=== PATIENT | male | born 1980 | race Caucasian/White ===

== ENCOUNTER 2017-10-12 13:35 | Emergency (ER) | payer SELFPAY ==
[~2017-10-12] VITALS: Ht 175.3 cm; Wt 123.6 kg
[~2017-10-12 13:35] MED LIST: DEXT30CA6 PO; GABA800T PO; HYDR-2766 PO; METF500T5 PO
[2017-10-12] MEDS ORDERED: PENI500T PO (14:46)
[2017-10-12] MEDS ORDERED: TRAM-48 PO (14:46)
--- NOTE | 2017-10-12 14:46 | PHYS DOC ---
Past History Past Medical History: No Pertinent History Past Surgical History: Tonsillectomy, Other Smoking: Cigarettes Alcohol Use: Occasionally Drug Use: None Adult General Chief Complaint Chief Complaint: DENTAL PROBLEM HPI HPI 37-year-old male patient with history of smoking complaining of pain in left upper jaw and tooth since last night as a constant pain that getting worse with eating and talking and rated his pain 6/10. Patient denies fever and chills, nausea and vomiting, recent injury. Patient currently smoking. Review of Systems Review of Systems Constitutional: Denies fever or chills [] Eyes: Denies change in visual acuity, redness, or eye pain [] HENT: Denies nasal congestion or sore throat [] Respiratory: Denies cough or shortness of breath [] Cardiovascular: No additional information not addressed in HPI [] GI: Denies abdominal pain, nausea, vomiting, bloody stools or diarrhea [] : Denies dysuria or hematuria [] Musculoskeletal: Denies back pain or joint pain [] Integument: Denies rash or skin lesions [] Neurologic: Denies headache, focal weakness or sensory changes [] Endocrine: Denies polyuria or polydipsia [] All other systems were reviewed and found to be within normal limits, except as documented in this note. Current Medications Current Medications Current Medications Medications (Trade) Dose Ordered Sig/Ting Start Time Stop Time Status Last Admin Dose Admin Ketorolac Tromethamine (Toradol Im) 60 mg 1X ONCE 10/12/17 15:00 10/12/17 15:01 Allergies Allergies Allergies Coded Allergies Type Severity Reaction Last Updated Verified No Known Drug Allergies 07/07/15 No Physical Exam Physical Exam Constitutional: Well developed, well nourished, mild istress, non-toxic appearance. [] HENT: Normocephalic, atraumatic, bilateral external ears normal, multiple dental cavities, #14 with tenderness and large cavity and gum edema or erythema without drainage of pus, oropharynx moist, no oral exudates, nose normal. [] Eyes: PERRLA, EOMI, conjunctiva normal, no discharge. [] Neck: Normal range of motion, no tenderness, supple, no stridor. [] Cardiovascular:Heart rate regular rhythm, no murmur [] Lungs & Thorax: Bilateral breath sounds clear to auscultation [] Extremities: No tenderness, no cyanosis, no clubbing, ROM intact, no edema. [] Neurologic: Alert and oriented X 3, normal motor function, normal sensory function, no focal deficits noted. [] Psychologic: Affect normal, judgement normal, mood normal. [] Current Patient Data Vital Signs Vital Signs Date Time Temp Pulse Resp B/P (MAP) Pulse Ox O2 Delivery O2 Flow Rate FiO2 10/12/17 13:57 98.0 67 18 98 Room Air EKG EKG [] Radiology/Procedures Radiology/Procedures [] Course & Med Decision Making Course & Med Decision Making discharge: I've spoken with the patient and/or caregivers. I've explained the patient's condition, diagnosis and treatment plan based on information available to me at this time. I've answered the patient's and/or caregivers questions and addressed any concerns. The patient and/or caregivers have a good understanding the patient's diagnosis, condition and treatment plan as can be expected at this point. Vital signs have been stabilized. The patient's condition is stable for discharge from the emergency department. The patient will pursue further outpatient evaluation with her primary care provider or other designated consulting physician as outlined in the discharge instructions. Patient and/or caregivers are agreeable to this plan of care and follow-up instructions have been explained in detail. The patient and/or caregivers have received these instructions in written format and expressed understanding of these discharge instructions. The patient and her caregivers are aware that if any significant change in condition or worsening of symptoms should prompt him to immediately return to this of the closest emergency department. If an emergent department is not readily available I would encourage him to call 911. Dragon Disclaimer Dragon Disclaimer This electronic medical record was generated, in whole or in part, using a voice recognition dictation system. Departure Departure: Impression: Primary Impression: Dentalgia Additional Impressions: Dental abscess Dental cavities Tobacco abuse Tobacco abuse counseling Disposition: HOME, SELF-CARE (at 1443) Condition: STABLE Referrals: PCP,SEAMUS (PCP) Patient Instructions: Dental Abscess, Dental Caries, Smoking Cessation, Tips For Success Additional Instructions: Follow-up with her dentist in 5-7 days Quit smoking Return to ER if not getting better Scripts Tramadol Hcl (ULTRAM) 50 Mg Tablet 50 MG PO PRN Q6HRS PRN for PAIN, #20 TAB Prov: CHIQUI CHANG MD 10/12/17 Penicillin V Potassium (PENICILLIN V POTASSIUM) 500 Mg Tablet 1 TAB PO TID, #30 TAB Prov: CHIQUI CHANG MD 10/12/17 Problem Qualifiers CHIQUI CHANG MD Oct 12, 2017 14:46
[2017-10-12] MEDS ORDERED: KETOROLAC 60 MG/2 ML VIAL. IM ONE (15:00)
[2017-10-12 15:12] VITALS: BP 151/85
== END 2017-10-12 15:12 | disposition home or self-care (01) ==
LOC: ER 13:35
DX: K04.7 Periapical abscess without sinus (principal); K02.9 Dental caries, unspecified; F17.210 Nicotine dependence, cigarettes, uncomplicated; Z71.6 Tobacco abuse counseling
CPT/HCPCS: 96372; 99283; J1885

== ENCOUNTER 2018-01-04 10:26 | Emergency (ER) | payer SELFPAY ==
[~2018-01-04] VITALS: Ht 175.3 cm; Wt 125.8 kg
[~2018-01-04 10:26] MED LIST changes: +METF500T16 PO; -METF500T5 PO; +PENI500T PO; +TRAM-48 PO
[2018-01-04 10:33] VITALS: BP 152/67
[2018-01-04] MEDS ORDERED: CYCL-331 PO (11:09)
[2018-01-04] MEDS ORDERED: HYDR-971 PO (11:10)
[2018-01-04] MEDS ORDERED: METH4TAB2 PO (11:10)
[2018-01-04] MEDS ORDERED: KETOROLAC 60 MG/2 ML VIAL. IM ONE (11:10)
--- NOTE | 2018-01-04 11:10 | PHYS DOC ---
Past History Past Medical History: Diabetes Past Surgical History: Tonsillectomy, Other Smoking: Cigarettes Alcohol Use: Occasionally Drug Use: None Adult General Chief Complaint Chief Complaint: BACK PAIN OR INJURY HPI HPI Patient is a 37 year old male who presents with complaining of low back pain for the last 2 days. Patient states he started to have gradual lower back pain without radiation as a constant pain that getting force with movement and bending after he moves heavy washer and dryer. Patient rated his pain 10 over 10 and states she took [id number] ibuprofen and Naprosyn without improvement of his pain. Patient denies focal neuro deficit, fever and chills, urine and bowel incontinence, history of back pain. Review of Systems Review of Systems Constitutional: Denies fever or chills [] Eyes: Denies change in visual acuity, redness, or eye pain [] HENT: Denies nasal congestion or sore throat [] Respiratory: Denies cough or shortness of breath [] Cardiovascular: No additional information not addressed in HPI [] GI: Denies abdominal pain, nausea, vomiting, bloody stools or diarrhea [] : Denies dysuria or hematuria [] Musculoskeletal: Reports back pain Integument: Denies rash or skin lesions [] Neurologic: Denies headache, focal weakness or sensory changes [] Endocrine: Denies polyuria or polydipsia [] All other systems were reviewed and found to be within normal limits, except as documented in this note. Current Medications Current Medications Current Medications Medications (Trade) Dose Ordered Sig/Ting Start Time Stop Time Status Last Admin Dose Admin Ketorolac Tromethamine (Toradol Im) 60 mg 1X ONCE 01/04/18 11:10 01/04/18 11:11 Allergies Allergies Allergies Coded Allergies Type Severity Reaction Last Updated Verified No Known Drug Allergies 07/07/15 No Physical Exam Physical Exam Constitutional: Well developed, well nourished, moderate distress, non-toxic appearance. [] HENT: Normocephalic, atraumatic Eyes: PERRLA, EOMI, conjunctiva normal, no discharge. [] Neck: Normal range of motion, no tenderness, supple, no stridor. [] Cardiovascular:Heart rate regular rhythm, no murmur [] Lungs & Thorax: Bilateral breath sounds clear to auscultation [] Abdomen: Bowel sounds normal, soft, no tenderness, no masses, no pulsatile masses. [] Skin: Warm, dry, no erythema, no rash. [] Back: No midline tenderness, bilateral paraspinal muscle spasm, no CVA tenderness. [] Extremities: No tenderness, no cyanosis, no clubbing, ROM intact, no edema. [] Neurologic: Alert and oriented X 3, normal motor function, normal sensory function, no focal deficits noted. [] Psychologic: Affect normal, judgement normal, mood normal. [] Current Patient Data Vital Signs Vital Signs Date Time Temp Pulse Resp B/P (MAP) Pulse Ox O2 Delivery O2 Flow Rate FiO2 01/04/18 10:33 98.0 60 18 100 Room Air EKG EKG [] Radiology/Procedures Radiology/Procedures [] Course & Med Decision Making Course & Med Decision Making Evaluation of patient in ER showed 37-year-old male patient with complaining of low back pain after lifting heavy weight for the last 3 days. Patient applied ice on his back without improvement. Patient had pulses present and treated with Toradol partial improvement of his pain. Plan discharge patient home to diagnose of lumbosacral myofascial strain. Patient instructed to apply ice on his back and avoid of bending over. Dragon Disclaimer Dragon Disclaimer This electronic medical record was generated, in whole or in part, using a voice recognition dictation system. Departure Departure: Impression: Primary Impression: Acute lumbosacral myofascial strain Additional Impression: Morbid obesity Disposition: 01 HOME, SELF-CARE (@1108) Condition: IMPROVED Referrals: PCP,NO (PCP) Patient Instructions: Lumbosacral Strain Additional Instructions: Apply ice on the affected Follow-up with your primary care physician in 3-5 days Return to ER if not getting better Scripts Hydrocodone Bit/Acetaminophen (NORCO 5-325 TABLET) 1 Each Tablet 1 TAB PO PRN Q6HRS PRN for PAIN, #14 TAB 0 Refills Prov: CHIQUI CHANG MD 01/04/18 Methylprednisolone (MEDROL) 4 Mg Tab.ds.pk 1 PKG PO UD for inflammation, #1 PKG Prov: CHIQUI CHANG MD 01/04/18 Cyclobenzaprine Hcl (CYCLOBENZAPRINE HCL) 10 Mg Tablet 1 TAB PO TID for pain, #30 TAB Prov: CHIQUI CHANG MD 01/04/18 Problem Qualifiers CHIQUI CHANG MD Jan 04, 2018 11:10
== END 2018-01-04 11:18 | disposition home or self-care (01) ==
LOC: ER 10:26
DX: S39.012A Strain of muscle, fascia and tendon of lower back, initial encounter (principal); E66.01 Morbid (severe) obesity due to excess calories; E11.9 Type 2 diabetes mellitus without complications; F17.210 Nicotine dependence, cigarettes, uncomplicated; Z68.41 Body mass index [BMI] 40.0-44.9, adult; X50.0XXA Overexertion from strenuous movement or load, initial encounter; Y93.89 Activity, other specified; Y92.89 Other specified places as the place of occurrence of the external cause; Y99.8 Other external cause status
CPT/HCPCS: 96372; 99283; J1885

== ENCOUNTER 2018-05-14 15:17 | Emergency (ER) | payer SELFPAY ==
[~2018-05-14] VITALS: Ht 185.4 cm; Wt 135.4 kg
[~2018-05-14 15:17] MED LIST changes: +CYCL-331 PO; -HYDR-2766 PO; +HYDR-2769 PO; +HYDR-3165 PO; +METH4TAB2 PO
[2018-05-14 15:26] VITALS: BP 161/117
[2018-05-14] MEDS ORDERED: AMOX1TAB61 PO (15:29)
--- NOTE | 2018-05-14 15:29 | PHYS DOC ---
Past History Past Medical History: Diabetes Past Surgical History: Tonsillectomy, Other Smoking: Cigarettes Alcohol Use: Occasionally Drug Use: None Adult General Chief Complaint Chief Complaint: ANIMAL BITE HPI HPI 38-year-old male presenting the emergency department today with a cat bite to his right first finger. Cat is up-to-date on immunizations. The patient has up- to-date tetanus within the last 5 years. He reports the cat was behaving normally. He owns a cat and can monitor the cat after this. He has pain in her finger that is sharp shooting mild nonradiating. The incident occurred at approximately 7 or 8 this morning. Review of systems is negative for any other injuries. ED course: 38-year-old male presenting with a cat bite. Low risk for rabies, he will monitor the animal for 10 days and return for shots if the animal develops any signs or symptoms. We will initiate oral Augmentin prophylactically for prevention of infection.The patient has been examined and was not found to have an emergency medical condition. The patient was then discharged home in stable condition to follow up with their primary care physician over the next 1-2 days. They were to return if their symptoms worsened or if they were concerned for any reason. They were also instructed to return to the emergency department if they were unable to get the recommended and appropriate follow- up. [id number] discharge instructions and return precautions were given. Patient's questions were answered to their satisfaction. Patient is comfortable with plan. Allergies Allergies Allergies Coded Allergies Type Severity Reaction Last Updated Verified No Known Drug Allergies 07/07/15 No Physical Exam Physical Exam Constitutional: Well developed, well nourished, no acute distress, non-toxic appearance. [] HENT: Normocephalic, atraumatic, bilateral external ears normal, oropharynx moist, no oral exudates, nose normal. Eyes: PERRLA, EOMI, conjunctiva normal, no discharge. [] Neck: Normal range of motion, no tenderness, supple, no stridor. Cardiovascular:Heart rate regular rhythm, no murmur [] Lungs & Thorax: Bilateral breath sounds clear to auscultation Abdomen: Bowel sounds normal, soft, no tenderness, no masses, no pulsatile masses. [] Skin: Warm, dry, no erythema, no rash. Back: No tenderness, no CVA tenderness. Extremities: The patient's right first finger has 3 small abrasions/bite garcia. The remainder of the extremities are nontender atraumatic and neurovascularly intact. Neurologic: Alert and oriented X 3, normal motor function, normal sensory function, no focal deficits noted. Psychologic: Affect normal, judgement normal, mood normal. EKG EKG [] Radiology/Procedures Radiology/Procedures [] Course & Med Decision Making Course & Med Decision Making Pertinent Labs and Imaging studies reviewed. (See chart for details) [] Dragon Disclaimer Dragon Disclaimer This electronic medical record was generated, in whole or in part, using a voice recognition dictation system. Departure Departure: Impression: Primary Impression: Cat bite Disposition: HOME, SELF-CARE Condition: STABLE Referrals: PCP,NO (PCP) Patient Instructions: Animal Bite Additional Instructions: Thank you for allowing us to participate in your care today. Return to the emergency department you have any new or worsening symptoms, or if you are concerned for any reason. Return to emergency department if you have any new or concerning symptoms including but not limited to fever, chills, nausea, vomiting, intractable pain, any new rashes, chest pain, shortness of air , uncontrolled bleeding, difficulty breathing, and/or vision loss. Follow up with your primary care physician within 1-2 days. Call your Primary Doctor tomorrow and inform them of your visit today. If you do not have a primary care provider we are happy to provide you with a list of our primary care providers contact information. This condition should be evaluated by your primary care physician and any recommended consulting services for continued management within 2 days after discharge. If at any time, you are having difficulty getting into your primary care doctor or a specialist, return to the emergency department. Scripts Amoxicillin/Potassium Clav (AUGMENTIN 875-125 TABLET) 1 Each Tablet 1 TAB PO BID for cat bite, #20 TAB Prov: CHANTAL CARRILLO MD 05/14/18 CHANTAL CARRILLO MD May 14, 2018 15:29
== END 2018-05-14 15:33 | disposition home or self-care (01) ==
LOC: ER 15:17
DX: S61.250A Open bite of right index finger without damage to nail, initial encounter (principal); E11.9 Type 2 diabetes mellitus without complications; F17.210 Nicotine dependence, cigarettes, uncomplicated; W55.01XA Bitten by cat, initial encounter; Y93.89 Activity, other specified; Y92.89 Other specified places as the place of occurrence of the external cause; Y99.8 Other external cause status
CPT/HCPCS: 99283

== ENCOUNTER 2018-08-04 06:41 | Emergency (ER) | payer SELFPAY ==
[~2018-08-04] VITALS: Ht 175.3 cm; Wt 133.4 kg
[~2018-08-04 06:41] MED LIST changes: +AMOX1TAB61 PO
--- NOTE | 2018-08-04 06:56 | PHYS DOC ---
Past History Past Medical History: Diabetes, Other Additional Past Medical Histor: Chronic back pain Past Surgical History: Tonsillectomy, Other Smoking: Cigarettes Alcohol Use: Occasionally Drug Use: None Adult General Chief Complaint Chief Complaint: BACK PAIN - NO INJURY HPI HPI 38 y/o male with pmh of chronic low back pain presents with reports of mechanical slip and fall down some stairs yesterday. Reports slipped carrying a box at his residence. Denies head trauma or LOC. Denies neck pain. Reports new upper back pain and exacerbation of chronic low back pain. Denies loss of bowel/bladder. Reports awoke this AM in pain. Reports headache this AM as well. Reports taking Ibuprofen and Tylenol prior to arrival at 0400 this AM. Patient drove self in vehicle to ED. Review of Systems Review of Systems Constitutional: Denies fever or chills Eyes: Denies redness or eye pain HENT: Denies nasal congestion or sore throat Respiratory: Denies cough or shortness of breath Cardiovascular: Denies chest pain or palpitations GI: Denies abdominal pain, nausea, or vomiting : Denies dysuria or hematuria Musculoskeletal: Reports thoracic and lumbar back pain; denies neck pain Integument: Denies rash or skin lesions Neurologic: Reports headache; denies loss of bowel/bladder, focal weakness, or sensory changes Complete systems were reviewed and found to be within normal limits, except as documented in this note. Allergies Allergies Allergies Coded Allergies Type Severity Reaction Last Updated Verified No Known Drug Allergies 07/07/15 No Physical Exam Physical Exam Constitutional: Well developed, well nourished, no acute distress, non-toxic appearance HENT: Normocephalic, atraumatic, oropharynx moist Eyes: Conjunctiva normal, no discharge Neck: Normal range of motion, no tenderness, supple Cardiovascular: Heart rate normal, regular rhythm Lungs & Thorax: Bilateral breath sounds clear to auscultation, no wheezing Abdomen: Soft, no tenderness; pelvis stable and nontender Skin: Warm, dry, no erythema, no rash, no ecchymosis, no laceration Back: Midline mid thoracic pain, right paraspinal pain to thoracic region and bilateral lumbar region Extremities: No tenderness, ROM intact, no edema Neurologic: Alert and oriented X 3, normal motor function, normal sensory function, no focal deficits noted Psychologic: Affect normal, judgement normal EKG EKG [] Radiology/Procedures Radiology/Procedures PROCEDURE: THORACIC SPINE 3V Three-view thoracic spine radiographs 08/04/2018 CLINICAL HISTORY: Mid back pain. Fall yesterday. 2 AP, a lateral and swimmer's lateral digital radiographs of the thoracic spine were obtained. Minimal S-shaped curvature of the thoracolumbar spine is seen. No fracture or subluxation of the thoracic vertebrae is seen. Degenerative changes are seen throughout the thoracic disc spaces consisting of vertebral endplate sclerosis and minimal to mild anterior vertebral body osteophyte formation. No paravertebral soft tissue swelling is seen. IMPRESSION: No fracture or subluxation of the thoracic vertebrae is seen. Electronically signed by: Misael Morris MD (08/04/2018 8:19 AM) [id number] PROCEDURE: LUMBAR SPINE 2-3V Three-view lumbar spine radiographs 08/04/2018 CLINICAL HISTORY: Low back pain post fall yesterday. AP and 2 lateral digital radiographs of the lumbar spine were obtained. Minimal S-shaped curvature of the thoracolumbar spine is seen. No fracture or subluxation of the lumbar vertebrae is seen. Degenerative changes are seen involving the lower thoracic and scattered throughout the lumbar disc spaces consisting of vertebral endplate sclerosis and minimal to mild anterior vertebral body osteophyte formation. Degenerative changes are seen involving the facet joints at L4-5 and L5-S1. IMPRESSION: No fracture or subluxation of the lumbar vertebrae is seen. Electronically signed by: Misael Morris MD (08/04/2018 8:22 AM) [facility] Course & Med Decision Making Course & Med Decision Making Pertinent Imaging studies reviewed. (See chart for details) Patient presents with fall with new thoracic back pain and exacerbation of chronic low back pain. No loss of bowel/bladder. Reports associated headache. Neurologically intact. ICE applied. Symptomatic treatment provided with oral steroid. [facility] report obtained with finding of [place] 10/325mg x 90 tabs filled on 07/15/18. Patient advised would be unable to write for other narcotic meds. Advised patient to follow with his doctor and/or pain specialist for further prescriptions. Patient stable for discharge with outpatient follow-up with PCP/pain management. Discussed findings and plan with patient and family, who acknowledge understanding and agreement. Dragon Disclaimer Dragon Disclaimer This electronic medical record was generated, in whole or in part, using a voice recognition dictation system. Departure Departure: Impression: Primary Impression: Fall Additional Impressions: Thoracic back pain Chronic back pain Headache Disposition: HOME, SELF-CARE Condition: STABLE Referrals: PCP,SEAMUS (PCP) Patient Instructions: Back Pain, Adult, [id number], Chronic Pain Management, Fall Prevention and Home Safety, [id number], Headache, FAQs Scripts Orphenadrine Citrate (ORPHENADRINE CITRATE) 100 Mg Tablet.er 1 TAB PO BID PRN for MUSCLE PAIN, #14 TAB Prov: SANDRA BUI DO 08/04/18 Prednisone (PREDNISONE) 20 Mg Tablet 2 TAB PO DAILY for back pain, #8 TAB Prov: SANDRA BUI DO 08/04/18 Problem Qualifiers Primary Impression: Fall Encounter type: initial encounter Qualified Codes: W19.XXXA - Unspecified fall, initial encounter Additional Impressions: Thoracic back pain Chronicity: acute Back pain laterality: right Qualified Codes: M54.6 - Pain in thoracic spine Chronic back pain Back pain location: low back pain Back pain laterality: bilateral Sciatica presence: without sciatica Qualified Codes: M54.5 - Low back pain; G89.29 - Other chronic pain Headache Headache type: unspecified Headache chronicity pattern: acute headache Intractability: not intractable Qualified Codes: R51 - Headache SANDRA BUI DO Aug 04, 2018 06:56
[2018-08-04 07:05] VITALS: BP 120/74
[2018-08-04] MEDS ORDERED: PRED20TA PO (07:13)
[2018-08-04] MEDS ORDERED: ORPH-16 PO (07:13)
[2018-08-04] MEDS ORDERED: DEXAMETHASONE 4 MG TABLET PO ONE (07:30)
--- NOTE | 2018-08-04 08:22 | RAD ---
Three-view thoracic spine radiographs 08/04/2018 CLINICAL HISTORY: Mid back pain. Fall yesterday. 2 AP, a lateral and swimmer's lateral digital radiographs of the thoracic spine were obtained. Minimal S-shaped curvature of the thoracolumbar spine is seen. No fracture or subluxation of the thoracic vertebrae is seen. Degenerative changes are seen throughout the thoracic disc spaces consisting of vertebral endplate sclerosis and minimal to mild anterior vertebral body osteophyte formation. No paravertebral soft tissue swelling is seen. IMPRESSION: No fracture or subluxation of the thoracic vertebrae is seen. Electronically signed by: Misael Morris MD (08/04/2018 8:19 AM) [facility]
--- NOTE | 2018-08-04 08:25 | RAD ---
Three-view lumbar spine radiographs 08/04/2018 CLINICAL HISTORY: Low back pain post fall yesterday. AP and 2 lateral digital radiographs of the lumbar spine were obtained. Minimal S-shaped curvature of the thoracolumbar spine is seen. No fracture or subluxation of the lumbar vertebrae is seen. Degenerative changes are seen involving the lower thoracic and scattered throughout the lumbar disc spaces consisting of vertebral endplate sclerosis and minimal to mild anterior vertebral body osteophyte formation. Degenerative changes are seen involving the facet joints at L4-5 and L5-S1. IMPRESSION: No fracture or subluxation of the lumbar vertebrae is seen. Electronically signed by: Misael Morris MD (08/04/2018 8:22 AM) [id number]
== END 2018-08-04 08:00 | disposition home or self-care (01) ==
LOC: ER 06:41
DX: M54.6 Pain in thoracic spine (principal); G89.29 Other chronic pain; M54.5 Low back pain; R51 Headache; E11.9 Type 2 diabetes mellitus without complications; F17.210 Nicotine dependence, cigarettes, uncomplicated; W10.8XXA Fall (on) (from) other stairs and steps, initial encounter; Y93.89 Activity, other specified; Y92.89 Other specified places as the place of occurrence of the external cause; Y99.8 Other external cause status
CPT/HCPCS: 72072; 72100; 99284; J8540

== ENCOUNTER 2018-11-30 16:47 | Emergency (ER) | payer SELFPAY ==
[~2018-11-30] VITALS: Ht 175.3 cm; Wt 126.1 kg
[~2018-11-30 16:47] MED LIST changes: +ORPH-16 PO; +PRED20TA PO
[2018-11-30 16:57] VITALS: BP 139/79
--- NOTE | 2018-11-30 17:28 | PHYS DOC ---
Past History Past Medical History: Anxiety, Diabetes, Other Additional Past Medical Histor: Chronic back pain Past Surgical History: Tonsillectomy, Other Additional Past Surgical Histo: L ARM Smoking: Cigarettes, Less than 1pk/day Alcohol Use: Occasionally Drug Use: Marijuana Adult General Chief Complaint Chief Complaint: FINGER INJURY HPI HPI Patient is a 38-year-old male presents complaining of left long finger pain. This morning he accidentally hit it with a hammer while working. He is right hand dominant. Later he had increased pain after working with concrete. He is convinced that there is concrete in the finger. Feels that the pain is radiating into his hand. No new numbness or tingling. Increased pain with movement. No relief with his usual naproxen that he takes twice a day. Pain is moderate to severe.[] Review of Systems Review of Systems Constitutional: Denies fever or chills [] Eyes: Denies change in visual acuity, redness, or eye pain [] HENT: Denies nasal congestion or sore throat [] Respiratory: Denies cough or shortness of breath [] Cardiovascular: No chest pain or palpitations[] GI: Denies abdominal pain, nausea, vomiting, bloody stools or diarrhea [] : Denies dysuria or hematuria [] Musculoskeletal: Denies back pain, see history of present illness[] Integument: Denies rash or skin lesions [] Neurologic: Denies headache, focal weakness or sensory changes [] Endocrine: Denies polyuria or polydipsia [] All other systems were reviewed and found to be within normal limits, except as documented in this note. Allergies Allergies Allergies Coded Allergies Type Severity Reaction Last Updated Verified No Known Drug Allergies 07/07/15 No Physical Exam Physical Exam Constitutional: Well developed, well nourished, no acute distress, non-toxic appearance. [] HENT: Normocephalic, atraumatic, bilateral external ears normal, oropharynx moist, no oral exudates, nose normal. [] Eyes: PERRLA, EOMI, conjunctiva normal, no discharge. [] Neck: Normal range of motion, no tenderness, supple, no stridor. [] Cardiovascular:Heart rate regular rhythm, no murmur [] Lungs & Thorax: Bilateral breath sounds clear to auscultation [] Abdomen: Not examined. [] Skin: Warm, dry, no erythema, no rash. [] Back: No tenderness, no CVA tenderness. [] Extremities: Left long finger has an abrasion to the radial aspect alongside his nail. This is approximately 1/2 cm in diameter. No specific pain with axial loading of any of the phalanges and the long finger nor are the metacarpal. FDS, FDP, and extensor mechanisms are intact. Capillary refills less than 2 seconds. 2. discrimination is less than 5 mm. Normal opposition. The other 3 extremities show: No tenderness, no cyanosis, no clubbing, ROM intact, no edema. [] Neurologic: Alert and oriented X 3, normal motor function, normal sensory function, no focal deficits noted. [] Psychologic: Affect normal, judgement normal, mood normal. [] Current Patient Data Vital Signs Vital Signs Date Time Temp Pulse Resp B/P (MAP) Pulse Ox O2 Delivery O2 Flow Rate FiO2 11/30/18 16:57 98.9 104 20 97 Room Air EKG EKG [] Radiology/Procedures Radiology/Procedures Left hand x-ray shows no evidence of a fracture or dislocation nor radio opaque foreign body[] Course & Med Decision Making Course & Med Decision Making Pertinent Labs and Imaging studies reviewed. (See chart for details) ED course: Patient arrived, was placed in bed, and tolerated exam well. Or to and from radiology with any complications. After return of the imaging findings, these were discussed with the patient voiced understanding. I a finger splint was applied for comfort. He was discharged in improved condition with all questions answered. He was distally neurovascularly intact after the splint application. Medical decision making: There is no evidence of fracture or dislocation. No evidence of radiopaque foreign body. No evidence of ligamentous or tendinous injury. No evidence of neurologic or vascular compromise.[] Dragon Disclaimer Dragon Disclaimer This electronic medical record was generated, in whole or in part, using a voice recognition dictation system. Departure Departure: Impression: Primary Impression: Finger contusion Disposition: 01 HOME, SELF-CARE Condition: IMPROVED Referrals: [facility] (PCP) Patient Instructions: Cast or Splint Care, Hand Contusion Additional Instructions: Follow-up with your regular doctor Workmen's Compensation physician in 2 days. Keep the splint clean and dry. Take the medication as prescribed, as needed for pain. Return to the ER if worsening pain, weakness, or any other concerns. Scripts Tramadol Hcl (TRAMADOL HCL) 50 Mg Tablet 50 MG PO PRN Q6HRS PRN for PAIN, #20 TAB Prov: CELIA HAYES DO 11/30/18 Problem Qualifiers Primary Impression: Finger contusion Encounter type: initial encounter Finger: middle finger Damage to nail status: without damage Laterality: left Qualified Codes: S60.032A - Contusion of left middle finger without damage to nail, initial encounter CELIA HAYES DO Nov 30, 2018 17:28
[2018-11-30] MEDS ORDERED: TRAM50TA PO (17:46)
--- NOTE | 2018-11-30 17:57 | RAD ---
3 views left hand HISTORY: Pain status post injury AP lateral oblique views left hand The visualized osseous structures appear normal. IMPRESSION: No acute findings. Electronically signed by: Epifanio Aleman III, MD (11/30/2018 5:54 PM) [facility] [place]
== END 2018-11-30 17:49 | disposition home or self-care (01) ==
LOC: ER 16:47
DX: S60.032A Contusion of left middle finger without damage to nail, initial encounter (principal); E11.9 Type 2 diabetes mellitus without complications; G89.29 Other chronic pain; F17.210 Nicotine dependence, cigarettes, uncomplicated; W22.8XXA Striking against or struck by other objects, initial encounter; Y93.89 Activity, other specified; Y92.89 Other specified places as the place of occurrence of the external cause; Y99.8 Other external cause status
CPT/HCPCS: 29130; 73130; 99284

== ENCOUNTER 2019-02-12 13:36 | Emergency (ER) | payer SELFPAY ==
[~2019-02-12] VITALS: Ht 175.3 cm; Wt 122.5 kg
[~2019-02-12 13:36] MED LIST changes: +TRAM50TA PO
[2019-02-12 13:47] VITALS: BP 134/72
[2019-02-12] MEDS ORDERED: MELO7.5T29 PO (14:34)
[2019-02-12] MEDS ORDERED: TRAM50TA PO (14:34)
[2019-02-12] MEDS ORDERED: AMOX500T PO (14:34)
--- NOTE | 2019-02-12 14:35 | PHYS DOC ---
Past History Past Medical History: Depression Additional Past Medical Histor: Chronic back pain Past Surgical History: Tonsillectomy Additional Past Surgical Histo: L ARM Smoking: Cigarettes, Less than 1pk/day Alcohol Use: None Drug Use: None Adult General Chief Complaint Chief Complaint: TOOTH ACHE OR PAIN HPI HPI Patient is a 39-year-old male presents complaining of right upper dental pain for approximately the past week. It has been getting worse over time. Sensitive to touch. No improvement with naproxen. No fever. No trauma. No difficulty breathing or swallowing. Pain is moderate to severe in intensity.[] Review of Systems Review of Systems Constitutional: Denies fever or chills [] Eyes: Denies change in visual acuity, redness, or eye pain [] HENT: Denies nasal congestion or sore throat [] Respiratory: Denies cough or shortness of breath [] Cardiovascular: No chest pain or palpitations[] GI: Denies abdominal pain, nausea, vomiting, bloody stools or diarrhea [] : Denies dysuria or hematuria [] Musculoskeletal: Denies back pain or joint pain [] Integument: Denies rash or skin lesions [] Neurologic: Denies headache, focal weakness or sensory changes [] Endocrine: Denies polyuria or polydipsia [] All other systems were reviewed and found to be within normal limits, except as documented in this note. Allergies Allergies Allergies Coded Allergies Type Severity Reaction Last Updated Verified No Known Drug Allergies 07/07/15 No Physical Exam Physical Exam Constitutional: Well developed, well nourished, no acute distress, non-toxic appearance. [] HENT: Normocephalic, atraumatic, bilateral external ears normal, oropharynx m oist, no oral exudates, nose normal. Tenderness to palpation tooth #2, 3 and 4. There is no drainable abscess. No broken teeth in that region. There is otherwise widespread dental disease.[] Eyes: PERRLA, EOMI, conjunctiva normal, no discharge. [] Neck: Normal range of motion, no tenderness, supple, no stridor. Cervical lymphadenopathy. [] Cardiovascular:Heart rate regular rhythm, no murmur [] Lungs & Thorax: Bilateral breath sounds clear to auscultation [] Abdomen: Not evaluated. [] Skin: Warm, dry, no erythema, no rash. [] Back: No tenderness, no CVA tenderness. [] Extremities: No tenderness, no cyanosis, no clubbing, ROM intact, no edema. [] Neurologic: Alert and oriented X 3, normal motor function, normal sensory function, no focal deficits noted. [] Psychologic: Affect normal, judgement normal, mood normal. [] Current Patient Data Vital Signs Vital Signs Date Time Temp Pulse Resp B/P (MAP) Pulse Ox O2 Delivery O2 Flow Rate FiO2 02/12/19 13:47 98.1 60 18 99 Room Air EKG EKG [] Radiology/Procedures Radiology/Procedures [] Course & Med Decision Making Course & Med Decision Making Pertinent Labs and Imaging studies reviewed. (See chart for details) ED course: Patient arrived, was placed in bed, and tolerated exam well. Findings and plan were discussed with the patient voiced understanding. All questions were answered. He was discharged in improved condition. Medical decision making: Patient appears to have a periapical abscess. There is no evidence of Jordon angina, sepsis, nor systemic toxicity. Will treat patient with oral outpatient antibiotic therapy.[] Dragon Disclaimer Dragon Disclaimer This electronic medical record was generated, in whole or in part, using a voice recognition dictation system. Departure Departure: Impression: Primary Impression: Dental abscess Disposition: HOME, SELF-CARE Condition: IMPROVED Referrals: GI[facility] DIGGS DO (PCP) Follow-up in 2 days Patient Instructions: Dental Abscess Additional Instructions: Follow-up with your regular doctor and dentist in 2 days. If you do not have of regular dentist a list of local dental clinics will be provided. Take the medication as prescribed. Return to the ER if worsening pain, unable to tolerate liquids, or any other concerns. Scripts Tramadol Hcl (TRAMADOL HCL) 50 Mg Tablet 50 MG PO PRN Q6HRS PRN for PAIN, #20 TAB Prov: CELIA HAYES DO 02/12/19 Meloxicam (MELOXICAM) 7.5 Mg Tablet 7.5 MG PO DAILY for PAIN, #20 TAB Prov: CELIA HAYES DO 02/12/19 Amoxicillin (AMOXICILLIN) 500 Mg Tablet 500 MG PO TID for DENTAL INFECTION for 10 Days, #30 TAB Prov: CELIA HAYES DO 02/12/19 CELIA HAYES DO Feb 12, 2019 14:35
== END 2019-02-12 14:42 | disposition home or self-care (01) ==
LOC: ER 13:36
DX: K04.7 Periapical abscess without sinus (principal); G89.29 Other chronic pain; F17.210 Nicotine dependence, cigarettes, uncomplicated
CPT/HCPCS: 99283

== ENCOUNTER 2019-07-23 13:46 | Emergency (ER) | payer SELFPAY ==
[~2019-07-23] VITALS: Ht 175.3 cm; Wt 141.0 kg
[~2019-07-23 13:46] MED LIST changes: +AMOX500T PO; +MELO7.5T29 PO
[2019-07-23 13:48] VITALS: BP 148/100
--- NOTE | 2019-07-23 14:08 | PHYS DOC ---
Past History Past Medical History: Depression Additional Past Medical Histor: Chronic back pain Past Surgical History: Tonsillectomy Additional Past Surgical Histo: L ARM Smoking: Cigarettes, Less than 1pk/day Alcohol Use: Rarely Drug Use: None General Adult EDM: Chief Complaint: KNEE INJURY HPI: HPI: 39-year-old male presents with right knee pain. The patient slipped and fell on his right leg while climbing a muddy [place] after fishing. Patient had 2 rest for a few minutes, but was able to walk and get himself back to his truck. He went to his primary care physician today for evaluation and treatment. He did some manual evaluation testing but no x-ray. Patient states that he was feeling a little bit better after he left the office, but the pain has increased. He felt like there was a popping sensation when this happened and he wants to make sure something is not broken. He is basically here for an x-ray. Review of Systems: Review of Systems: Constitutional: Denies fever or chills Eyes: Denies change in visual acuity HENT: Denies nasal congestion or sore throat Respiratory: Denies cough or shortness of breath Cardiovascular: Denies chest pain or edema GI: Denies abdominal pain, nausea, vomiting, bloody stools or diarrhea : Denies dysuria Musculoskeletal: Right medial knee pain Integument: Denies rash Neurologic: Denies headache, focal weakness or sensory changes Endocrine: Denies polyuria or polydipsia Lymphatic: Denies swollen glands Psychiatric: Denies depression or anxiety Heart Score: Risk Factors: Risk Factors: DM, Current or recent (<one month) smoker, HTN, HLP, family history of CAD, obesity. Risk Scores: Score 0 - 3: 2.5% MACE over next 6 weeks - Discharge Home Score 4 - 6: 20.3% MACE over next 6 weeks - Admit for Clinical Observation Score 7 - 10: 72.7% MACE over next 6 weeks - Early Invasive Strategies Allergies: Allergies: Allergies Coded Allergies Type Severity Reaction Last Updated Verified No Known Drug Allergies 07/07/15 No Physical Exam: PE: Constitutional: Well developed, well nourished, no acute distress, non-toxic appearance. [] HENT: Normocephalic, atraumatic, bilateral external ears normal, oropharynx moist, no oral exudates, nose normal. [] Eyes: PERRLA, EOMI, conjunctiva normal, no discharge. [] Neck: Normal range of motion, no tenderness, supple, no stridor. [] Cardiovascular:Heart rate regular rhythm, no murmur [] Lungs & Thorax: Bilateral breath sounds clear to auscultation [] Abdomen: Bowel sounds normal, soft, no tenderness, no masses, no pulsatile masses. [] Skin: Warm, dry, no erythema, no rash. [] Back: No tenderness, no CVA tenderness. [] Extremities: Right anterior, medial knee pain. Negative anterior and posterior drawer. Pain with Varus and valgus, both on medial side of knee; some swelling, no obvious deformity Neurologic: Alert and oriented X 3, normal motor function, normal sensory function, no focal deficits noted. [] Psychologic: Affect normal, judgement normal, mood normal. [] Current Patient Data: Vital Signs: Vital Signs Date Time Temp Pulse Resp B/P (MAP) Pulse Ox O2 Delivery O2 Flow Rate FiO2 07/23/19 13:48 98.1 80 18 148/100 (116) 98 Room Air EKG: EKG: [] Radiology/Procedures: Radiology/Procedures: [] Course & Med Decision Making: Course & Med Decision Making Pertinent Labs and Imaging studies reviewed. (See chart for details) The patient's physical exam suggests either a medial collateral ligament strain and/or medial meniscus injury. ACL and PCL are solid. The patient's x-ray is negative for acute fracture. He has some arthritis. I have advised to continue the treatment plan at that his primary care physician gave him this morning. If things do not improve in a week, he will seek orthopedic consult. He is stable for discharge at this time. [] Dragon Disclaimer: Dragon Disclaimer: This electronic medical record was generated, in whole or in part, using a voice recognition dictation system. Departure Departure: Impression: Primary Impression: Right knee sprain Qualified Codes: S83.411A - Sprain of medial collateral ligament of right knee, initial encounter Disposition: 01 HOME/RESIDENCE PRIOR TO ADM Condition: STABLE Referrals: [facility] DIGGS DO (PCP) Patient Instructions: Medial Collateral Knee Ligament Sprain with Phase I Rehab -[facility] WINSTON HUGO DO July 23, 2019 14:08
--- NOTE | 2019-07-23 14:34 | RAD ---
4 view right knee dated 07/23/2019. No comparison available. Clinical data indication: Pain. FINDINGS: 4 view right knee show normal bony alignment. No displaced fracture. No acute osseous or articular abnormality. There is enthesopathic change at the medial epicondyle, possibly related to prior MCL injury. No apparent joint effusion or loose body. IMPRESSION: No acute radiographic abnormality. Electronically signed by: Adriano Oswald MD (07/23/2019 2:32 PM) [facility]
[2019-07-23] MEDS ORDERED: KETOROLAC 60 MG/2 ML VIAL. IM ONE ×2 (14:45)
== END 2019-07-23 14:48 | disposition home or self-care (01) ==
LOC: ER 13:46
DX: S83.411A Sprain of medial collateral ligament of right knee, initial encounter (principal); R60.0 Localized edema; F32.9 Major depressive disorder, single episode, unspecified; G89.29 Other chronic pain; F17.210 Nicotine dependence, cigarettes, uncomplicated; Z98.890 Other specified postprocedural states; W01.0XXA Fall on same level from slipping, tripping and stumbling without subsequent striking against object, initial encounter; Y93.89 Activity, other specified; Y92.89 Other specified places as the place of occurrence of the external cause; Y99.8 Other external cause status
CPT/HCPCS: 73564; 99283; J1885